=== PATIENT | female | born 1965 | race Caucasian/White ===

== ENCOUNTER 2017-04-29 22:22 | Emergency (ER) | payer MEDICAID ==
[~2017-04-29] VITALS: Ht 160 cm; Wt 89.4 kg
[2017-04-29 22:26] VITALS: Ht 160 cm; Wt 89.4 kg
--- NOTE | 2017-04-29 23:55 | ERD ---
ER Documentation Chief Complaint Chief Complaint cough x 2 days. headache HPI dry cough and fever, cough described as non productive x 2 days , fever being treated with Tylenol , normal po intake, normal wet diapers ROS All systems reviewed and are negative except as per history of present illness. Allergies Allergies: Coded Allergies: No Known Allergy (Unverified , 04/29/17) PMhx/Soc History of Surgery: No Anesthesia Reaction: No Hx Neurological Disorder: No Hx Respiratory Disorders: No Hx Cardiac Disorders: Yes (HTN) Hx Psychiatric Problems: No Hx Miscellaneous Medical Probl: Yes (DM) Hx Alcohol Use: No Hx Substance Use: No Smoking Status: Never smoker Physical Exam Vitals Vital Signs Date Time Temp Pulse Resp B/P Pulse Ox O2 Delivery O2 Flow Rate FiO2 04/29/17 22:26 98.2 99 20 153/70 98 Physical Exam Const: [] Head: Atraumatic Eyes: Normal Conjunctiva ENT: Normal External Ears, Nose and Mouth. Neck: Full range of motion..~ No meningismus. Resp: Clear to auscultation bilaterally Cardio: Regular rate and rhythm, no murmurs Abd: Soft, non tender, non distended. Normal bowel sounds Skin: No petechiae or rashes Back: No midline or flank tenderness Ext: No cyanosis, or edema Neur: Awake and alert Psych: Normal Mood and Affect ARINA HUERTA Apr 29, 2017 23:55
[2017-04-30] MEDS ORDERED: ACET500C5 PO (00:28)
[2017-04-30] MEDS ORDERED: SODI126M NASAL (00:28)
[2017-04-30] MEDS ORDERED: GUAI-637 PO (00:28)
--- NOTE | 2017-04-30 02:57 | ERD ---
ER Documentation Chief Complaint Chief Complaint cough x 2 days. headache HPI 51-year-old female is complaining of cough 2 days. Cough is nonproductive. Patient also complaining of headache, headache is worse when she coughs or sneezes.. She reports subjective fever at home, but did not measure her temperature. She took Tylenol at home, last dose was yesterday. Denies shortness of breath. Denies abdominal pain, vomiting, or diarrhea. Denies neck pain. ROS All systems reviewed and are negative except as per history of present illness. Medications Home Meds Active Scripts Guaifenesin* (Robitussin*) 100 Mg/5 Ml Syrup, 100 MG PO Q6H Y for COUGH, #120 ML Prov:LUPILLO CARRILLO. PRELOAD SUPERVISOR 04/30/17 Acetaminophen* (Tylophen*) 500 Mg Capsule, 1 CAP PO Q6H Y for PAIN AND OR ELEVATED TEMP, #20 CAP Prov:LUPILLO CARRILLO. PRELOAD SUPERVISOR 04/30/17 Sodium Chloride (Saline Nasal Mist) 126 Ml Mist, 2 SPRAY NASAL Q2H Y for NASAL CONGESTION, #1 BOTTLE Prov:LUPILLO CARRILLO. PRELOAD SUPERVISOR 04/30/17 Allergies Allergies: Coded Allergies: No Known Allergy (Unverified , 04/29/17) PMhx/Soc History of Surgery: No Anesthesia Reaction: No Hx Neurological Disorder: No Hx Respiratory Disorders: No Hx Cardiac Disorders: Yes (HTN) Hx Psychiatric Problems: No Hx Miscellaneous Medical Probl: Yes (DM) Hx Alcohol Use: No Hx Substance Use: No Smoking Status: Never smoker Physical Exam Vitals Vital Signs Date Time Temp Pulse Resp B/P Pulse Ox O2 Delivery O2 Flow Rate FiO2 04/29/17 22:26 98.2 99 20 153/70 98 Physical Exam General: Well-developed, well-nourished, conscious and coherent, in no distress Skin: Warm and dry without rash, good texture and turgor Head: Normocephalic without evidence of trauma Eyes: Sclera and conjunctivae normal; pupils equal, round, and reactive to light; extraocular movements are intact Ears: Canals are patent. Tympanic membranes are clear Nose/Face: Nasal mucosa erythematous and swollen with clear rhinorrhea. Bilateral frontal sinuses tender to percussion. Mouth/throat: Mucous membranes are moist. Posterior pharynx clear without erythema or exudates Neck: Supple without meningismus or adenopathy. Carotids are equal. Trachea midline. No bruits or JVD Chest: Normal AP diameter. Good expansion without retractions. Nontender. Lungs are clear to auscultate bilaterally with good tidal volume Heart: Regular rate and rhythm. No murmur, rub, or gallops heard Extremities: Full range of motion. Good strength bilaterally. No clubbing, cyanosis, or edema. Peripheral pulses are intact. Sensation intact Neuro: Alert and oriented 4, GCS 15. Cranial nerves grossly intact. Motor and sensory exams nonfocal. Moves all extremities. Speech clear. Gait normal Procedures/MDM Patient is afebrile, in no respiratory distress. Lungs are clear to auscultate. I doubt that patient has pneumonia or bronchitis. Likely patient's symptoms are result of viral upper respiratory infection. Patient appears well, stable for discharge and outpatient management. Medical decision making shared with patient and family. Education provided to patient and family. Patient and family expressed understanding of the plan. Medications on discharge: Tylenol, saline nasal spray, Robitussin. Follow-up: Primary care provider in 2-3 days or return to ED if worse. Disclaimer: Inadvertent spelling and grammatical errors are likely due to EHR/ dictation software use and do not reflect on the overall quality of patient care. Also, please note that the electronic time recorded on this note does not necessarily reflect the actual time of the patient encounter. Departure Diagnosis: Primary Impression: URI (upper respiratory infection) Condition: Stable Patient Instructions: Adult Self-Care for Colds Referrals: [facility] Usted se fung hecho un examen mdico de control que le indica que no est en moustapha condicin que requiera tratamiento urgente en el Departamento de Emergencia. Un estudio ms profundo y el tratamiento de veloz condicin pueden esperar sin ningn riesgo hasta que usted sea atendida/o en el consultorio de veloz mdico o moustapha cl shyla. Es responsabilidad suya arreglar moustapha bill para el seguimiento del desire. MANEJO DE CONDICIONES NO URGENTES EN EL FUTURO 1) Si usted tiene un mdico de atencin primaria: Usted debera llamar a veloz mdico de atencin primaria antes de venir al departamento de emergencia. Despus de las horas de consultorio, veloz doctor o veloz asociado/a est disponible por telfono. El mdico o enfermero de devendra en el servicio telefnico puede asesorarle por kartik medio para atender el problema, o desire contrario se puede programar moustapha bill. 2) Si usted no tiene un mdico de atencin primaria: Llame al mdico o clnica de referencia que aparece abajo rosangela las horas de consultorio para hacer moustapha bill para que le vean. CLINICAS: [place] [address] [phone] [facility] [phone] [facility] [phone] [address] [place] [phone] [place] [phone] [facility]. [phone] [address] Additional Instructions: Llame al doctor MAANA y robby moustapha BILL PARA DENTRO DE 2-3 DUKE.Dgale a la secretaria que nosotros le instruimos hacer esta bill.Avise o llame si veloz condicin se empeora antes de la bill. Regresa aqui si peor o no mejor. LUPILLO CARRILLO NP Apr 30, 2017 02:57
== END 2017-04-30 00:50 | disposition home or self-care (01) ==
LOC: FTE 22:22
DX: J06.9 Acute upper respiratory infection, unspecified (principal); I10 Essential (primary) hypertension; E11.9 Type 2 diabetes mellitus without complications
CPT/HCPCS: 99283

== ENCOUNTER 2017-10-04 20:25 | Emergency (ER) | END 2017-10-04 22:10 | disposition home or self-care (01) ==

== ENCOUNTER 2018-01-23 17:39 | Emergency (ER) | END 2018-01-23 20:04 | disposition home or self-care (01) ==

== ENCOUNTER 2018-03-14 20:16 | Emergency (ER) | END 2018-03-15 01:55 | disposition home or self-care (01) ==

== ENCOUNTER 2018-05-25 22:07 | Emergency (ER) | payer MEDICAID ==
[~2018-05-25] VITALS: Ht 160 cm; Wt 85.4 kg
[~2018-05-25 22:07] MED LIST: ACET500C5 PO; ALBU18HF INHALATION; ALBU8.5H8 INH; AZIT250T PO; BEN25 PO; FLOV110 INHALATION; FLUC150T PO; GUAI-637 PO; PRED20TA PO; SODI126M NASAL
[2018-05-25 22:22] VITALS: Ht 160 cm; Wt 85.4 kg
--- NOTE | 2018-05-26 00:17 | ERD ---
ER Documentation Chief Complaint Chief Complaint cough w/ SOB and CWP x2 days HPI 52-year-old female with history of asthma, presents to the emergency department, complaining of 2 days with worsening of cough, associated with wheezing and increased respiratory effort. The patient has been using albuterol MDI without improvement of the symptoms. She denies fevers, no chills. ROS All systems reviewed and are negative except as per history of present illness. Medications Home Meds Active Scripts Albuterol Sulfate* (Proair HFA*) 8.5 Gm Hfa.aer.ad, 2 PUFF INH Q4H PRN for WHEEZING AND SOB, #1 INHALER Prov:PERRY HAMLIN MD 05/26/18 Prednisone* (Prednisone*) 20 Mg Tab, 60 MG PO DAILY for 4 Days, TAB Prov:PERRY HAMLIN MD 05/26/18 Azithromycin* (Zithromax*) 250 Mg Tablet, 250 MG PO .ZPACHACHO DIRECTED, #6 TAB TAKE 500 MG (2 TABS) THE FIRST DAY THEN 250 MG (1 TAB) DAYS 2-5 Prov:PERRY HAMLIN MD 05/26/18 Albuterol Sulfate* (Ventolin HFA*) 18 Gm Hfa.aer.ad, 2 PUFF INHALATION Q4H, #1 INHALER Prov:REBECA MEDINA 03/15/18 Prednisone* (Prednisone*) 20 Mg Tab, 40 MG PO DAILY for 4 Days, TAB Prov:REBECA MEDINA 03/15/18 Azithromycin* (Zithromax*) 250 Mg Tablet, 250 MG PO .ZPACK DIRECTED, #6 TAB TAKE 500 MG (2 TABS) THE FIRST DAY THEN 250 MG (1 TAB) DAYS 2-5 Prov:REBECA MEDINA 03/15/18 Diphenhydramine Hcl* (Benadryl*) 25 Mg Cap, 25 MG PO Q6, #15 CAP Prov:IVAN BECERRIL MD 01/23/18 Fluconazole* (Diflucan*) 150 Mg Tablet, 150 MG PO ONCE, #2 TAB 1 p.o. and then repeat in 1 week. Prov:IVAN BECERRIL MD 01/23/18 Fluticasone Propionate* (Flovent* HFA 110) 12 Gm Inha, 1 PUFF INHALATION BID, #1 INHALER Prov:BRADLEY,ARINA 10/04/17 Albuterol Sulfate* (Proair HFA*) 8.5 Gm Hfa.aer.ad, 2 PUFF INH Q4, #1 INHALER Prov:BRADLEY,ARINA 10/04/17 Prednisone* (Prednisone*) 20 Mg Tab, 40 MG PO DAILY for 4 Days, TAB Prov:BRADLEY,ARINA 10/04/17 Guaifenesin* (Robitussin*) 100 Mg/5 Ml Syrup, 100 MG PO Q6H PRN for COUGH, #120 ML Prov:LUPILLO CARRILLO. LANDSCAPE ARCHITECT 04/30/17 Acetaminophen* (Tylophen*) 500 Mg Capsule, 1 CAP PO Q6H PRN for PAIN AND OR ELEVATED TEMP, #20 CAP Prov:LUPILLO CARRILLO. LANDSCAPE ARCHITECT 04/30/17 Sodium Chloride (Saline Nasal Mist) 126 Ml Mist, 2 SPRAY NASAL Q2H PRN for NASAL CONGESTION, #1 BOTTLE Prov:LUPILLO CARRILLO. LANDSCAPE ARCHITECT 04/30/17 Allergies Allergies: Coded Allergies: No Known Allergy (Unverified , 04/29/17) PMhx/Soc History of Surgery: No Anesthesia Reaction: No Hx Neurological Disorder: No Hx Respiratory Disorders: No Hx Cardiac Disorders: Yes (HTN) Hx Psychiatric Problems: No Hx Miscellaneous Medical Probl: Yes (DM) Hx Alcohol Use: No Hx Substance Use: No Hx Tobacco Use: No Physical Exam Vitals Vital Signs Date Temp Pulse Resp B/P (MAP) Pulse Ox O2 O2 Flow FiO2 Time Delivery Rate 05/26/18 102 18 98 21 00:32 05/25/18 97.3 106 20 169/80 98 22:22 (109) Physical Exam Const: No acute distress Head: Atraumatic Eyes: Normal Conjunctiva ENT: Normal External Ears, Nose and Mouth. Neck: Full range of motion. No meningismus. Resp: Decreased respiratory sounds with wheezing to auscultation bilaterally Cardio: Regular rate and rhythm, no murmurs Abd: Soft, non tender, non distended. Normal bowel sounds Skin: No petechiae or rashes Back: No midline or flank tenderness Ext: No cyanosis, or edema Neur: Awake and alert Psych: Normal Mood and Affect Results 24 hrs Current Medications Medications Dose Sig/Flavio Start Time Status Last (Trade) Ordered Route PRN Stop Time Admin Dose Reason Admin Albuterol 5 mg ONCE ONCE 05/26/18 DC 05/26/18 (Proventil NEB 00:30 00:31 0.083% (Neb)) 05/26/18 00:31 Ipratropium 0.5 mg ONCE ONCE 05/26/18 DC 05/26/18 [place] NEB 00:30 00:31 (Atrovent 05/26/18 0.02% 00:31 (Neb)) Prednisone 60 mg ONCE ONCE 05/26/18 DC 05/26/18 (Prednisone) PO 00:30 01:21 05/26/18 00:31 Albuterol 2.5 mg STK-MED 05/26/18 DC (Proventil ONCE .ROUTE 00:22 0.083% (Neb)) 05/26/18 00:23 Ipratropium 0.5 mg STK-MED 05/26/18 DC [place] ONCE .ROUTE 00:22 (Atrovent 05/26/18 0.02% 00:23 (Neb)) Procedures/MDM Differential diagnosis include but not limited to: Respiratory infection bacterial/viral/fungal. Asthma/COPD, pneumonitis, allergies, GERD. Less likely foreign body aspiration, cardiac related, aspiration pneumonia, malignancy. Physical examination and clinical presentation consistent most likely with acute asthma exacerbation with early superimposed bacterial infection. During the ED course the patient remained stable, received a nebulized treatment and steroids in the ED presenting overall improvement of the symptoms, no new complaints. Clinical impression discussed with the patient who agrees with management. The patient is stable to be treated outpatient and will be discharged home. Some side effects of prescribed medications (headache, rash, nausea, vomiting, diarrhea, drowsiness, habituation, bleeding, hypertension, interactions with o ther medications) were reviewed. The patient was instructed to follow up with the primary care provider in the next 48h. If symptoms persist, worsen or new symptoms develop, then patient should return to the ED immediately. Disclaimer: Inadvertent spelling and grammatical errors are likely due to EHR/dictation software use and do not reflect on the overall quality of patient care. Also, please note that the electronic time recorded on this note does not necessarily reflect the actual time of the patient encounter. Departure Diagnosis: Primary Impression: Asthma exacerbation Condition: Stable Additional Instructions: Muchas fady por [facility] para veloz servicio. Esperamos que en veloz visita a la louise de emergencia veloz problema medico haya sido solucionado y que se sienta mucho mejor. Para estar seguros que veloz mejoria sigue en proceso, le pedimos el favor de hacer moustapha joshua de seguimiento medico con veloz doctor primario en los proximos 2-4 ferrari. Lleve con usted estos documentos y las medicinas recetadas. Si jannie sintomas empeoran, NO SE ESPERE, por favor regrese a louise de emergencia INMEDIATAMENTE. En desire que usted no tenga un mdico de atencin primaria: Llame al mdico o clnica comunitaria de referencia que aparece abajo rosangela las horas de consultorio para hacer moustapha joshua para que le vean. CLINICAS: [facility] [phone] [facility] [phone] [facility] [phone] [facility] [phone] [place] [phone] [address] [facility] [phone] PERRY PAYTON MD May 26, 2018 00:17
[2018-05-26] MEDS ORDERED: IPRATROPIUM (NEB) 0.5 MG/2.5 ML AMP ONE (00:22)
[2018-05-26] MEDS ORDERED: ALBUTEROL 0.083% (NEB) 2.5 MG/3 ML AMP ONE (00:22)
[2018-05-26] MEDS ORDERED: IPRATROPIUM (NEB) 0.5 MG/2.5 ML AMP NEB ONE (00:30)
[2018-05-26] MEDS ORDERED: predniSONE 20 MG TAB PO ONE (00:30)
[2018-05-26] MEDS ORDERED: ALBUTEROL 0.083% (NEB) 2.5 MG/3 ML AMP NEB ONE (00:30)
[2018-05-26] MEDS ORDERED: PRED20TA PO (01:30)
[2018-05-26] MEDS ORDERED: ALBU8.5H8 INH (01:30)
[2018-05-26] MEDS ORDERED: AZIT250T PO (01:30)
[2018-05-26 02:16] VITALS: BP 120/75; PULSE 98; RESP 16
== END 2018-05-26 02:16 | disposition home or self-care (01) ==
LOC: FTE 22:07
DX: I10 Essential (primary) hypertension (principal); E11.9 Type 2 diabetes mellitus without complications
CPT/HCPCS: 94664; J7512; Z7502; Z7610

== ENCOUNTER 2018-06-03 21:52 | Emergency (ER) | payer MEDICAID ==
[~2018-06-03] VITALS: Ht 154.9 cm; Wt 85.1 kg
[2018-06-03 21:59] VITALS: Ht 154.9 cm; Wt 85.1 kg
[2018-06-03] MEDS ORDERED: DEXAMETHASONE 10 MG/ML 1 ML INJ IM STA (23:33)
[2018-06-03] MEDS ORDERED: IPRATROPIUM (NEB) 0.5 MG/2.5 ML AMP INH STA (23:33)
[2018-06-03] MEDS ORDERED: LEVALBUTEROL (NEB) 1.25 MG/0.5 ML AMP INH STA (23:33)
[2018-06-04] MEDS ORDERED: ALBU18HF INHALATION (01:53)
[2018-06-04 02:00] VITALS: BP 131/71; PULSE 110; RESP 20
--- NOTE | 2018-06-04 02:02 | ERD ---
ER Documentation Chief Complaint Chief Complaint wheezing, inhaler not working HPI 52-year-old female patient with a past medical history of asthma, diabetes, hypertension presents to the ED complaining of wheezing that started 4 days ago. Patient was seen here on May 26, 2018 with similar symptoms. Patient r eports that her symptoms have not improved. Denies any fever, chest pain, abdominal pain, chills, nausea, vomiting, diarrhea, neck stiffness. Denies any recent traveling. ROS All systems reviewed and are negative except as per history of present illness. Medications Home Meds Active Scripts Albuterol Sulfate* (Ventolin HFA*) 18 Gm Hfa.aer.ad, 2 PUFF INHALATION Q4H, #1 INHALER Prov:JENNIFER DEGROOT PA-C 06/04/18 Albuterol Sulfate* (Proair HFA*) 8.5 Gm Hfa.aer.ad, 2 PUFF INH Q4H PRN for WHEEZING AND SOB, #1 INHALER Prov:PERRY HAMLIN MD 05/26/18 Prednisone* (Prednisone*) 20 Mg Tab, 60 MG PO DAILY for 4 Days, TAB Prov:PERRY HAMLIN MD 05/26/18 Azithromycin* (Zithromax*) 250 Mg Tablet, 250 MG PO .ZPACK DIRECTED, #6 TAB TAKE 500 MG (2 TABS) THE FIRST DAY THEN 250 MG (1 TAB) DAYS 2-5 Prov:PERRY HAMLIN MD 05/26/18 Albuterol Sulfate* (Ventolin HFA*) 18 Gm Hfa.aer.ad, 2 PUFF INHALATION Q4H, #1 INHALER Prov:REBECA MEDINA 03/15/18 Prednisone* (Prednisone*) 20 Mg Tab, 40 MG PO DAILY for 4 Days, TAB Prov:REBECA MEDINA 03/15/18 Azithromycin* (Zithromax*) 250 Mg Tablet, 250 MG PO .ZPACK DIRECTED, #6 TAB TAKE 500 MG (2 TABS) THE FIRST DAY THEN 250 MG (1 TAB) DAYS 2-5 Prov:REBECA MEDINA 03/15/18 Diphenhydramine Hcl* (Benadryl*) 25 Mg Cap, 25 MG PO Q6, #15 CAP Prov:IVAN BECERRIL MD 01/23/18 Fluconazole* (Diflucan*) 150 Mg Tablet, 150 MG PO ONCE, #2 TAB 1 p.o. and then repeat in 1 week. Prov:IVAN BECERRIL MD 01/23/18 Fluticasone Propionate* (Flovent* HFA 110) 12 Gm Inha, 1 PUFF INHALATION BID, #1 INHALER Prov:BRADLEY,ARINA 10/04/17 Albuterol Sulfate* (Proair HFA*) 8.5 Gm Hfa.aer.ad, 2 PUFF INH Q4, #1 INHALER Prov:BRADLEY,ARINA 10/04/17 Prednisone* (Prednisone*) 20 Mg Tab, 40 MG PO DAILY for 4 Days, TAB Prov:BRADLEY,ARINA 10/04/17 Guaifenesin* (Robitussin*) 100 Mg/5 Ml Syrup, 100 MG PO Q6H PRN for COUGH, #120 ML Prov:LUPILLO CARRILLO NP 04/30/17 Acetaminophen* (Tylophen*) 500 Mg Capsule, 1 CAP PO Q6H PRN for PAIN AND OR ELEVATED TEMP, #20 CAP Prov:LUPILLO CARRILLO. CARDIAC TECH 04/30/17 Sodium Chloride (Saline Nasal Mist) 126 Ml Mist, 2 SPRAY NASAL Q2H PRN for NASAL CONGESTION, #1 BOTTLE Prov:LUPILLO CARRILLO NP 04/30/17 Allergies Allergies: Coded Allergies: No Known Allergy (Unverified , 04/29/17) PMhx/Soc Medical and Surgical Hx: pt denies Surgical Hx History of Surgery: No Anesthesia Reaction: No Hx Neurological Disorder: No Hx Respiratory Disorders: No Hx Cardiac Disorders: Yes (HTN) Hx Psychiatric Problems: No Hx Miscellaneous Medical Probl: Yes (DM) Hx Alcohol Use: No Hx Substance Use: No Hx Tobacco Use: No Smoking Status: Never smoker FmHx Family History: No diabetes, No coronary disease Physical Exam Vitals Vital Signs Date Temp Pulse Resp B/P (MAP) Pulse Ox O2 O2 Flow FiO2 Time Delivery Rate 06/04/18 117 26 92 21 00:05 06/03/18 97.8 117 24 160/82 93 21:59 (108) Physical Exam Const: Vak-eee-cvfuanbno, well-nourished. In no acute distress. Head: Atraumatic, normocephalic Eyes: Normal Conjunctiva without injection. No purulent discharge. PERRL. EOMI ENT: Normal external ear. Ear canal without erythema. Tympanic membrane pearly givens without effusion or bulging. Nasal canal clear with normal turbinates. Moist oropharynx without tonsillar exudates. Non-erythematous pharynx. Uvula midline. No drooling. No trismus. Neck: Full range of motion. No meningismus. No cervical lymphadenopathy. Resp: Expiratory and inspiratory wheezing noted. No rhonchi, rales, or crackles. No accessory muscle use. No retractions. Cardio: Regular rate and rhythm. No murmurs, rubs or gallops. Abd: Soft, non tender, non distended. Normal bowel sounds. No palpable masses. No rebound tenderness. No guarding. Skin: No petechiae or rashes Back: No midline tenderness. No CVA tenderness. Ext: No cyanosis, or edema. Neur: Awake and alert. Psych: Normal Mood and Affect Results 24 hrs Current Medications Medications Dose Sig/Flavio Start Time Status Last (Trade) Ordered Route PRN Stop Time Admin Dose Reason Admin 5 mg ONCE STAT 06/03/18 DC 06/04/18 Levalbuterol INH 23:33 06/03/18 00:04 (Xopenex 23:35 Neb) Ipratropium 1 mg ONCE STAT 06/03/18 DC 06/04/18 [place] INH 23:33 06/03/18 00:05 (Atrovent 23:35 0.02% (Neb)) 10 mg ONCE STAT 06/03/18 DC 06/03/18 Dexamethasone IM 23:33 06/03/18 23:57 (Decadron) 23:35 Procedures/MDM 52-year-old female patient with no significant past medical history presents to the ED complaining of wheezing. Patient is afebrile and nontoxic-appearing. She was given a breathing treatment consisting of Xopenex 5 mg continuous, 1 mg continuous Atrovent, Decadron 10 mg IM with improvement of her symptoms. PROCEDURE: XR Chest. CLINICAL INDICATION: Shortness of breath. Asthma exacerbation TECHNIQUE: Portable AP semi erect view of the chest was obtained. COMPARISON: 03/14/2018 FINDINGS: The cardiomediastinal silhouette is within normal limits. The lungs are clear and there is no evidence of hyperinflation. There is no evidence for pleural effusion, pneumothorax or pulmonary vascular congestion. The osseous structures are intact with no evidence for acute abnormality. Mild thoracic spine enthesopathy is present RPTAT:HJJR IMPRESSION: No evidence for acute intrathoracic pathology. Patient likely has an asthma exacerbation. Low suspicion for atypical [place], pneumonia, pulmonary embolism, pneumothorax, cardiac tamponade, sinusitis, peritonsillar abscess, mastoiditis, Juan's angina, retropharyngeal abscess, meningitis, sepsis or other emergent condit ions. Patient's respiratory status has stabilized while in the department and is appropriate for outpatient work up. Exam and work up not consistent w/ impending respiratory failure or cardiovascular collapse. Diagnosis: Wheezing Discharge medications: Ventolin Follow up with primary care physician in 1-2 days. Instructed patient to return to the ED sooner for any worsening symptoms. Patient's questions were answered. Patient is hemodynamically stable. Patient understood and agreed with discharge plan. Patient discharged stable. Disclaimer: Inadvertent spelling and grammatical errors are likely due to EHR/dictation software use and do not reflect on the overall quality of patient care. Also, please note that the electronic time recorded on this note does not necessarily reflect the actual time of the patient encounter. Departure Diagnosis: Primary Impression: Wheezing Condition: Stable Patient Instructions: Asthma, Acute (Adult) Referrals: [facility] YOU HAVE RECEIVED A MEDICAL SCREENING EXAM AND THE RESULTS INDICATE THAT YOU DO NOT HAVE A CONDITION THAT REQUIRES URGENT TREATMENT IN THE EMERGENCY DEPARTMENT. FURTHER EVALUATION AND TREATMENT OF YOUR CONDITION CAN WAIT UNTIL YOU ARE SEEN IN YOUR DOCTORS OFFICE WITHIN THE NEXT 1-2 DAYS. IT IS YOUR RESPONSIBILITY TO MAKE AN APPOINTMENT FOR FOLOW-UP CARE. IF YOU HAVE A PRIMARY DOCTOR --you should call your primary doctor and schedule an appointment IF YOU DO NOT HAVE A PRIMARY DOCTOR YOU CAN CALL OUR PHYSICIAN REFERRAL HOTLINE AT IF YOU CAN NOT AFFORD TO SEE A PHYSICIAN YOU CAN CHOSE FROM THE FOLLOWING [facility] CLINICS [facility] [address] [facility] [address] [facility] [address] [facility] [address] [facility] [facility] [address] [facility]. [facility]. [address] [facility]. [facility] YOU HAVE RECEIVED A MEDICAL SCREENING EXAM AND THE RESULTS INDICATE THAT YOU DO NOT HAVE A CONDITION THAT REQUIRES URGENT TREATMENT IN THE EMERGENCY DEPARTMENT. FURTHER EVALUATION AND TREATMENT OF YOUR CONDITION CAN WAIT UNTIL YOU ARE SEEN IN YOUR DOCTORS OFFICE WITHIN THE NEXT 1-2 DAYS. IT IS YOUR RESPONSIBILITY TO MAKE AN APPOINTMENT FOR FOLOW-UP CARE. IF YOU HAVE A PRIMARY DOCTOR --you should call your primary doctor and schedule and appointment IF YOU DO NOT HAVE A PRIMARY DOCTOR YOU CAN CALL OUR PHYSICIAN REFERRAL HOTLINE AT . IF YOU CAN NOT AFFORD TO SEE A PHYSICIAN YOU CAN CHOSE FROM THE FOLLOWING [facility] IN[facility]: [facility] [address] [place] [address] [facility] [address] [place], [place] [id number] [place] [address] [address] [place] [address] [facility] URGENT CARE/SPECIALTIES Additional Instructions: Llame al doctor MAANA y robby moustapha BILL PARA DENTRO DE 2-3 [place].Dgale a la secretaria que nosotros le instruimos hacer esta bill.Avise o llame si veloz condicin se empeora antes de la bill. Regresa aqui si peor o no mejor. JENNIFER DEGROOT PA-C Jun 04, 2018 02:02
== END 2018-06-04 02:05 | disposition home or self-care (01) ==
LOC: FTE 21:52
DX: J45.901 Unspecified asthma with (acute) exacerbation (principal); I10 Essential (primary) hypertension; E11.9 Type 2 diabetes mellitus without complications
CPT/HCPCS: 71045; 94644; 96372; J1100; Z7502; Z7610

== ENCOUNTER 2018-06-10 18:44 | Emergency (ER) | payer MEDICAID ==
[~2018-06-10] VITALS: Ht 152.4 cm; Wt 87.7 kg
[2018-06-10 18:51] VITALS: BP 153/70; PULSE 95; RESP 18; Ht 152.4 cm; Wt 87.7 kg
[2018-06-10] MEDS ORDERED: DOXY100T21 PO (21:37)
[2018-06-10] MEDS ORDERED: IBUP-1542 PO (21:37)
--- NOTE | 2018-06-10 21:40 | ERD ---
ER Documentation Chief Complaint Chief Complaint pain left 2nd finger radiating to left arm x 2 days. denies trauma HPI This 52-year-old female presents with pain in her left index finger near the nail for the last 2 days. She is worried she has gangrene given her history of diabetes patient has a history of trauma. She did have some irritation on the opposite nail with some discharge previously. She denies restricted range of motion or weakness. ROS All systems reviewed and are negative except as per history of present illness. Medications Home Meds Active Scripts Doxycycline Monohydrate* (Doxycycline Monohydrate*) 100 Mg Tablet, 100 MG PO BID for 7 Days, TAB Prov:IVAN BECERRIL MD 06/10/18 Ibuprofen* (Motrin*) 600 Mg Tab, 600 MG PO Q6, #20 TAB Prov:IVAN BECERRIL MD 06/10/18 Albuterol Sulfate* (Ventolin HFA*) 18 Gm Hfa.aer.ad, 2 PUFF INHALATION Q4H, #1 INHALER Prov:JENNIFER DEGROOT PA-C 06/04/18 Albuterol Sulfate* (Proair HFA*) 8.5 Gm Hfa.aer.ad, 2 PUFF INH Q4H PRN for WHEEZING AND SOB, #1 INHALER Prov:PERRY HAMLIN MD 05/26/18 Prednisone* (Prednisone*) 20 Mg Tab, 60 MG PO DAILY for 4 Days, TAB Prov:PERRY HAMLIN MD 05/26/18 Azithromycin* (Zithromax*) 250 Mg Tablet, 250 MG PO .StaceyPACHACHO DIRECTED, #6 TAB TAKE 500 MG (2 TABS) THE FIRST DAY THEN 250 MG (1 TAB) DAYS 2-5 Prov:PERRY HAMLIN MD 05/26/18 Albuterol Sulfate* (Ventolin HFA*) 18 Gm Hfa.aer.ad, 2 PUFF INHALATION Q4H, #1 INHALER Prov:REBECA MEDINA 03/15/18 Prednisone* (Prednisone*) 20 Mg Tab, 40 MG PO DAILY for 4 Days, TAB Prov:REBECA MEDINA 03/15/18 Azithromycin* (Zithromax*) 250 Mg Tablet, 250 MG PO .ZPACK DIRECTED, #6 TAB TAKE 500 MG (2 TABS) THE FIRST DAY THEN 250 MG (1 TAB) DAYS 2-5 Prov:REBECA MEDINA 03/15/18 Diphenhydramine Hcl* (Benadryl*) 25 Mg Cap, 25 MG PO Q6, #15 CAP Prov:IVAN BECERRIL MD 01/23/18 Fluconazole* (Diflucan*) 150 Mg Tablet, 150 MG PO ONCE, #2 TAB 1 p.o. and then repeat in 1 week. Prov:IVAN BECERRIL MD 01/23/18 Fluticasone Propionate* (Flovent* HFA 110) 12 Gm Inha, 1 PUFF INHALATION BID, #1 INHALER Prov:BRADLEY,ARINA 10/04/17 Albuterol Sulfate* (Proair HFA*) 8.5 Gm Hfa.aer.ad, 2 PUFF INH Q4, #1 INHALER Prov:BRADLEY,ARINA 10/04/17 Prednisone* (Prednisone*) 20 Mg Tab, 40 MG PO DAILY for 4 Days, TAB Prov:BRADLEY,ARINA 10/04/17 Guaifenesin* (Robitussin*) 100 Mg/5 Ml Syrup, 100 MG PO Q6H PRN for COUGH, #120 ML Prov:LUPILLO CARRILLO NP 04/30/17 Acetaminophen* (Tylophen*) 500 Mg Capsule, 1 CAP PO Q6H PRN for PAIN AND OR ELEVATED TEMP, #20 CAP Prov:LUPILLO CARRILLO NP 04/30/17 Sodium Chloride (Saline Nasal Mist) 126 Ml Mist, 2 SPRAY NASAL Q2H PRN for NASAL CONGESTION, #1 BOTTLE Prov:LUPILLO CARRILLO NP 04/30/17 Allergies Allergies: Coded Allergies: No Known Allergy (Unverified , 04/29/17) PMhx/Soc Medical and Surgical Hx: pt denies Surgical Hx History of Surgery: No Anesthesia Reaction: No Hx Neurological Disorder: No Hx Respiratory Disorders: No Hx Cardiac Disorders: Yes (HTN) Hx Psychiatric Problems: No Hx Miscellaneous Medical Probl: Yes (DM) Hx Alcohol Use: No Hx Substance Use: No Hx Tobacco Use: No Smoking Status: Never smoker FmHx Family History: No diabetes, No coronary disease, No other Physical Exam Vitals Vital Signs Date Temp Pulse Resp B/P (MAP) Pulse Ox O2 O2 Flow FiO2 Time Delivery Rate 06/10/18 98.4 95 18 153/70 96 18:51 (97) Physical Exam Const: No acute distress Head: Atraumatic Eyes: Normal Conjunctiva ENT: Normal External Ears, Nose and Mouth. Neck: Full range of motion. No meningismus. Resp: Clear to auscultation bilaterally Cardio: Regular rate and rhythm, no murmurs Abd: Soft, non tender, non distended. Normal bowel sounds Skin: No petechiae or rashes Back: No midline or flank tenderness Ext: No cyanosis, or edema. Slight blanching redness on the paronychial area of the left index finger. No induration, streaking, restricted range of motion weakness or deformities. Neur: Awake and alert Psych: Normal Mood and Affect Procedures/MDM She presents with pain in her left index finger for last 2 days. May be early paronychia. Will treat with doxycycline, ibuprofen, instructions for warm compresses and instructions for recheck for worsening redness, swelling, pain, new worsening symptoms. There is no evidence of ischemia or deficits. Doubt tenosynovitis or osteomyelitis. The patient was stable with no new complaints during the ER course. Clinically, there is no current evidence to suggest meningitis, sepsis, acute abdomen, pneumonia, stroke, acute coronary syndrome, pulmonary embolism, aortic dissection or any other emergent condition appearing to require further evaluation or hospitalization. Patient counseled regarding my diagnostic impression and care plan. Prior to discharge all questions answered. Pt agrees with treatment plan and understands strict return precautions. Pt is instructed to follow up with primary care provider within 24- 48 hours. Precautionary instructions provided including instructions to return to the ER if not improving or for any worsening or changing symptoms or concerns. Departure Diagnosis: Primary Impression: Pain of finger Laterality: left Qualified Codes: M79.645 - Pain in left finger(s) Condition: Stable Patient Instructions: Paronychia Referrals: [facility] (PCP) Additional Instructions: pone en agua tibia. Examines normal hoy. Cheque otro vez con veloz doctor primario en el proximo ferrari or regresa para mas o nueva simptomas. IVAN BECERRIL MD Jun 10, 2018 21:40
== END 2018-06-10 22:28 | disposition home or self-care (01) ==
LOC: FTE 18:44
DX: M79.645 Pain in left finger(s) (principal); I10 Essential (primary) hypertension; E11.9 Type 2 diabetes mellitus without complications
CPT/HCPCS: 99283

== ENCOUNTER 2018-07-29 12:13 | Emergency (ER) | payer MEDICAID ==
[~2018-07-29] VITALS: Ht 157.5 cm; Wt 90.4 kg
[~2018-07-29 12:13] MED LIST changes: +DOXY100T21 PO; +IBUP-1542 PO
[2018-07-29 12:16] VITALS: BP 180/83; PULSE 80; RESP 16; Ht 157.5 cm; Wt 90.4 kg
[2018-07-29] MEDS ORDERED: KETOROLAC 60 MG INJ IM STA (12:32)
[2018-07-29] MEDS ORDERED: IBUP-1542 PO (15:55)
[2018-07-29] MEDS ORDERED: TRAM50TA2 PO (15:55)
--- NOTE | 2018-07-29 15:58 | ERD ---
ER Documentation Chief Complaint Chief Complaint pt is bib self with c/o left sided flank pain x 3 days HPI 52-year-old female presents with a 3-day history of pain in her left lower back. Started while awakening. She denies any dysuria, hematuria, fevers, vomiting. Patient denies any history of genitourinary issues. Denies any inciting event such as lifting, additional symptoms. Pain is described as 5-10 without exacerbating factors, it is nonradiating. Pain is sharp in nature. ROS All systems reviewed and are negative except as per history of present illness. Medications Home Meds Active Scripts Tramadol HCl (Tramadol HCl) 50 Mg Tablet, 50 MG PO Q4 PRN for PAIN, #15 TAB Prov:IVAN BECERRIL MD 07/29/18 Ibuprofen* (Motrin*) 600 Mg Tab, 600 MG PO Q6, #20 TAB Prov:IVAN BECERRIL MD 07/29/18 Doxycycline Monohydrate* (Doxycycline Monohydrate*) 100 Mg Tablet, 100 MG PO BID for 7 Days, TAB Prov:IVAN BECERRIL MD 06/10/18 Ibuprofen* (Motrin*) 600 Mg Tab, 600 MG PO Q6, #20 TAB Prov:IVAN BECERRIL MD 06/10/18 Albuterol Sulfate* (Ventolin HFA*) 18 Gm Hfa.aer.ad, 2 PUFF INHALATION Q4H, #1 INHALER Prov:JENNIFER DEGROOT PA-C 06/04/18 Albuterol Sulfate* (Proair HFA*) 8.5 Gm Hfa.aer.ad, 2 PUFF INH Q4H PRN for WHEEZING AND SOB, #1 INHALER Prov:PERRY HAMLIN MD 05/26/18 Prednisone* (Prednisone*) 20 Mg Tab, 60 MG PO DAILY for 4 Days, TAB Prov:PERRY HAMLIN MD 05/26/18 Azithromycin* (Zithromax*) 250 Mg Tablet, 250 MG PO .ZPACK DIRECTED, #6 TAB TAKE 500 MG (2 TABS) THE FIRST DAY THEN 250 MG (1 TAB) DAYS 2-5 Prov:PERRY HAMLIN MD 05/26/18 Albuterol Sulfate* (Ventolin HFA*) 18 Gm Hfa.aer.ad, 2 PUFF INHALATION Q4H, #1 INHALER Prov:QUINNNATHALYREBECA Alden 03/15/18 Prednisone* (Prednisone*) 20 Mg Tab, 40 MG PO DAILY for 4 Days, TAB Prov:QUINNNATHALYREBECA Jean Marie. 03/15/18 Azithromycin* (Zithromax*) 250 Mg Tablet, 250 MG PO .BRANDI DIRECTED, #6 TAB TAKE 500 MG (2 TABS) THE FIRST DAY THEN 250 MG (1 TAB) DAYS 2-5 Prov:QUINNNATHALYREBECA Alden 03/15/18 Diphenhydramine Hcl* (Benadryl*) 25 Mg Cap, 25 MG PO Q6, #15 CAP Prov:IVAN BECERRIL MD 01/23/18 Fluconazole* (Diflucan*) 150 Mg Tablet, 150 MG PO ONCE, #2 TAB 1 p.o. and then repeat in 1 week. Prov:IVAN BECERRIL MD 01/23/18 Fluticasone Propionate* (Flovent* HFA 110) 12 Gm Inha, 1 PUFF INHALATION BID, #1 INHALER Prov:BRADLEY,ARINA 10/04/17 Albuterol Sulfate* (Proair HFA*) 8.5 Gm Hfa.aer.ad, 2 PUFF INH Q4, #1 INHALER Prov:BRADLEY,ARINA 10/04/17 Prednisone* (Prednisone*) 20 Mg Tab, 40 MG PO DAILY for 4 Days, TAB Prov:BRADLEYARINA 10/04/17 Guaifenesin* (Robitussin*) 100 Mg/5 Ml Syrup, 100 MG PO Q6H PRN for COUGH, #120 ML Prov:LUPILLO CARRILLO NP 04/30/17 Acetaminophen* (Tylophen*) 500 Mg Capsule, 1 CAP PO Q6H PRN for PAIN AND OR ELEVATED TEMP, #20 CAP Prov:LUPILLO CARRILLO NP 04/30/17 Sodium Chloride (Saline Nasal Mist) 126 Ml Mist, 2 SPRAY NASAL Q2H PRN for NASAL CONGESTION, #1 BOTTLE Prov:LUPILLO CARRILLO NP 04/30/17 Allergies Allergies: Coded Allergies: No Known Allergy (Unverified , 04/29/17) PMhx/Soc Medical and Surgical Hx: pt denies Surgical Hx History of Surgery: No Anesthesia Reaction: No Hx Neurological Disorder: No Hx Respiratory Disorders: No Hx Cardiac Disorders: Yes (HTN; HLD) Hx Psychiatric Problems: No Hx Miscellaneous Medical Probl: Yes (DM) Hx Alcohol Use: No Hx Substance Use: No Hx Tobacco Use: No Smoking Status: Never smoker Physical Exam Vitals Vital Signs Date Temp Pulse Resp B/P (MAP) Pulse Ox O2 O2 Flow FiO2 Time Delivery Rate 07/29/18 97.1 80 16 180/83 100 12:16 (115) Physical Exam Const: No acute distress Head: Atraumatic Eyes: Normal Conjunctiva ENT: Normal External Ears, Nose and Mouth. Neck: Full range of motion. No meningismus. Resp: Clear to auscultation bilaterally Cardio: Regular rate and rhythm, no murmurs Abd: Soft, non tender, non distended. Normal bowel sounds Skin: No petechiae or rashes Back: No midline or flank tenderness. There is left L2-L4 area and paraspinous area. No straight leg raise. No gross CVA tenderness. Ext: No cyanosis, or edema Neur: Awake and alert Psych: Normal Mood and Affect Results 24 hrs Laboratory Tests Test 07/29/18 12:40 07/29/18 12:44 Urine Color YELLOW Urine Clarity SLIGHTLY CLOUDY Urine pH 6.0 Urine Specific Girard 1.020 Urine Ketones NEGATIVE mg/dL Urine Nitrite NEGATIVE mg/dL Urine Bilirubin NEGATIVE mg/dL Urine Urobilinogen NEGATIVE mg/dL Urine Leukocyte Esterase TRACE Rossana/ul Urine Microscopic RBC 48 /HPF Urine Microscopic WBC 5 /HPF Urine Squamous Epithelial Cells FEW /HPF Urine Bacteria FEW /HPF Urine Mucus FEW /HPF Urine Hemoglobin 2+ mg/dL Urine Glucose 1+ mg/dL Urine Total Protein NEGATIVE mg/dl POC Beta HCG, Qualitative NEGATIVE Current Medications Medications Dose Sig/Flavio Start Time Status Last (Trade) Ordered Route PRN Stop Time Admin Dose Reason Admin Ketorolac 60 mg ONCE STAT 07/29/18 DC 07/29/18 Tromethamine IM 12:32 07/29/18 12:51 (Toradol) 12:34 Procedures/MDM Patient presents with left lower back pain for last 3 days which is nontraumatic. Urine shows significant hemoglobin with few white blood cells and trace leukocyte esterase. HCG negative renal ultrasound shows mild left-sided hydronephrosis. Patient may have renal colic. There is no current signs or symptoms of significant findings on urinalysis to suggest pyelonephritis as cause of pain. Patient has no abdominal pain to suggest surgical abdomen, appendicitis, reticulitis, additional emergent cause of presenting complaints. She will be treated with tramadol, ibuprofen, recommendations return precautions for fevers, vomiting, new worsening symptoms. The patient was stable with no new complaints during the ER course. Clinically, there is no current evidence to suggest meningitis, sepsis, acute abdomen, pneumonia, stroke, acute coronary syndrome, pulmonary embolism, aortic dissection or any other emergent condition appearing to require further evaluation or hospitalization. Patient counseled regarding my diagnostic i mpression and care plan. Prior to discharge all questions answered. Pt agrees with treatment plan and understands strict return precautions. Pt is instructed to follow up with primary care provider within 24-48 hours. Precautionary instructions provided including instructions to return to the ER if not improving or for any worsening or changing symptoms or concerns. Departure Diagnosis: Primary Impression: Renal colic on left side Additional Impression: Back pain Back pain location: low back pain Chronicity: acute Back pain laterality: left Sciatica presence: without sciatica Qualified Codes: M54.5 - Low back pain Condition: Stable Patient Instructions: Flank Pain, Uncertain Cause, Kidney Stone W/ Colic Referrals: [facility] (PCP) YOUSUF CASAREZ MD Additional Instructions: probablamente un radha en rinon. jeyson much agua. Cheque otro vez con veloz doctor primario en el proximo ferrari or regresa para mas o nueva simptomas- fiebre, vomito, mas dolor.. IVAN BECERRIL MD Jul 29, 2018 15:58
== END 2018-07-29 16:05 | disposition home or self-care (01) ==
LOC: FTE 12:13
DX: N23 Unspecified renal colic (principal); I10 Essential (primary) hypertension; E11.9 Type 2 diabetes mellitus without complications
CPT/HCPCS: 76775; 81001; 81025; 96372; J1885; Z7502